=== PATIENT | male | born 1935 | race Caucasian/White ===

== ENCOUNTER → 2016-09-12 | Outpatient (CLI) | payer MEDICARE ==
[~2016-09-12] MED LIST: ACETAMINOPHEN325 MG PO; ADVAIR 250-501 EAC1 IH; ADVAIR 250-501 EACH PO; ADVAIR 500-501 EACH IH; ALBUTEROL; ALBUTEROL 0.5ML NEB; ALBUTEROL MININEB NEB; ALLEGRA; ALLEGRA PO; ALLEGRA60 MG PO; ALLERGY INJECTIONS; AMOXICILLIN PO; AMPHOTERICIN; ASMANEX; ASTELIN137 MCG; AUGMENTIN PO; AUGMENTIN875 M1 PO; AUGMENTIN875 MG PO; AURALGAN EAR DR14 ML OT; CARDIZEM CD PO; CARDIZEM CD180 M1 PO; CLEOCIN PO; COMBIVENT INH14.7 GM; COMBIVENT INH14.7 GM INH; COMBIVENT MININEB; COUMADIN PO; COUMADIN5 MG PO; COUMADIN7.5 MG PO; DARVOCET-N 1001 TA1 PO; DARVOCET-N 1001 TAB PO; DIABETA1.25 MG PO; FLONASE 0.05% N16 GM; FLONASE16 GM; FORADIL12 MCG; HYDROCHLOROTHIA25 MG PO; K-TAB ER20 MEQ PO; LORTAB 7.5-5001 TAB PO; MUCOMYST200 MG/ML NEB; NASONEX17 GM; NEURONTIN100 MG PO; NEXIUM; NOVOLIN R100 UNITS/ SUBQ; PEPCID PO; PHENERGAN W/CO120 ML PO; PRADAXA150 MG PO; PREDNISONE PO; PREDNISONE10 MG PO; PREDNISONE10 MG/DOSE PO; PROAIR HFA8.5 GM IH; PROSCAR5 MG PO; PULMICORT0.5 MG/2 M IH; PULMICORT200 MCG/AE; RAPAFLO8 MG PO; RYTHMOL225 MG PO; SINGULAIR PO; VICODIN PO; XOPENEX1.25 MG/0.; ZYVOX600 MG PO; [UNRECOGNIZED DRUG - OTHER]
--- NOTE | ~2016-09-12 | CT57 ---
[facility] A Service of [facility] RADIOLOGY TEXT RESULTS PATIENT: SHY SWANN LOCATION: [facility] : 37 UNIT #: [id number] AGE: [address]: Milvia Tejeda APRN SEX: M ORDER DR: [id number] [facility] [address] [place], [place] [address] [id number] O MR#: [id number] [facility] #: [id number] NAME: SHY SWANN : 1935 SEX: M STUDY DATE/TIME: 09/13/2016 1310 UNIT: [facility] ROOM: STUDY DESCRIPTION: CT Chest Wo Cont Attending Physician: Milvia Tejeda A.P.R.N. Referring Physician: Milvia Tejeda A.P.R.N. Ordering Physician: Milvia Tejeda A.P.R.N. Primary Care Physician: Cornel De La Cruz M.D. MEDICAL IMAGING REPORT This report is preliminary unless electronic signature is present EXAM CT chest without contrast 09/12/2016 1310 hours HISTORY 81-year-old man with history of asthma and cough for evaluation of abnormal chest x-ray. COMPARISON High-resolution chest CT 09/15/2014. Most recent available chest x-ray is 08/06/2014. TECHNIQUE Helical noncontrasted images were obtained from the thoracic inlet through the adrenal glands. Sagittal and coronal reconstructions were performed. Total exam DLP 781 mGy-cm. This CT exam was performed with one or more of the following radiation dose reduction techniques: automatic exposure control, adjustment of mA and/or kV according to patient size, and iterative reconstruction. FINDINGS Images through the thoracic inlet demonstrate no thyroid mass or supraclavicular adenopathy. Images through the chest demonstrate ascending aortic aneurysm measuring 5.2 cm where previously it measured 5 cm. The pulmonary arteries are enlarged with main pulmonary artery 4.1 cm previously 4.0 cm. There is mild enlargement of the cardiac chambers with no pericardial fluid or esophageal lesion. There are multiple small mediastinal and hilar lymph nodes which are chronic and unchanged felt likely benign. There is a benign calcified right hilar node with calcified granuloma in the inferior aspect of the right upper lobe anteromedially. There is a bandlike density in the right STS. [facility] A Service of [facility] RADIOLOGY TEXT RESULTS PATIENT: SHY SWANN LOCATION: [facility] : 37 UNIT #: [id number] AGE: [address]: Milvia Tejeda EELER SEX: M ORDER DR: middle lobe greater than the left lower lobe consistent with chronic atelectasis or scar. There is no definite new or developing nodule. No acute infiltrate or effusion. Limited views through the upper abdomen are negative. IMPRESSION 1. Ascending aortic aneurysm measuring 5.2 cm where it previously measured 5 cm on 09/15/2014. 2. Enlarged main pulmonary artery now 4.1 cm previously 4 cm. 3. Benign calcified granulomatous changes are present. 4. There is bandlike scarring in the right middle lobe greater than left lower lobe. No acute pulmonary densities. Dictated by... Cathie Hauser M.D. THIS IS AN ELECTRONICALLY VERIFIED REPORT Cathie Hauser M.D. at 09/16/2016 9:07 AM Madelaine TD: 09/13/2016 16:24 JOB #: [id number] MEDICAL IMAGING REPORT Page 1 of 1 COPY
== END | disposition home or self-care (01) ==
LOC: CCAT 12:45
DX: J45.20 Mild intermittent asthma, uncomplicated (principal); I71.2 Thoracic aortic aneurysm, without rupture; J84.10 Pulmonary fibrosis, unspecified; R91.8 Other nonspecific abnormal finding of lung field
CPT/HCPCS: 71250

== ENCOUNTER → 2016-10-02 | Outpatient (CLI) | payer MEDICARE | END | disposition home or self-care (01) | LOC: CECH 13:15 | DX: R06.00 Dyspnea, unspecified (principal); R09.89 Other specified symptoms and signs involving the circulatory and respiratory systems; I35.8 Other nonrheumatic aortic valve disorders; I36.1 Nonrheumatic tricuspid (valve) insufficiency | CPT/HCPCS: 93306 ==